=== PATIENT | male | born 1970 | race Caucasian/White ===

== ENCOUNTER 2016-11-30 08:47 | Emergency (ER) | payer OTHER ==
[2016-11-30] MEDS ORDERED: KETOROLAC 60 MG/2 ML VIAL IM ONE (12:02)
== END 2016-11-30 12:44 | disposition home or self-care (01) ==
LOC: ER 08:47
DX: S16.1XXA Strain of muscle, fascia and tendon at neck level, initial encounter (principal); S60.222A Contusion of left hand, initial encounter; S60.221A Contusion of right hand, initial encounter; V49.49XA Driver injured in collision with other motor vehicles in traffic accident, initial encounter
CPT/HCPCS: 72050; 72100; 96372

== ENCOUNTER 2016-12-01 11:47 | Emergency (ER) | payer OTHER | END 2016-12-01 13:41 | disposition home or self-care (01) | LOC: FASTR 11:47 | DX: S83.91XA Sprain of unspecified site of right knee, initial encounter (principal); S80.01XA Contusion of right knee, initial encounter; V89.2XXA Person injured in unspecified motor-vehicle accident, traffic, initial encounter ==